=== PATIENT | male | born 1960 | race Caucasian/White ===

== ENCOUNTER 2022-01-28 07:39 | Emergency (ER) | payer BC ==
[~2022-01-28] VITALS: Ht 182.9 cm; Wt 118.0 kg
[2022-01-28 08:15] LABS: HEMATOCRIT 44.8 % (39.0-50.0); HEMOGLOBIN 14.6 g/dl (14.0-18.0); IMMATURE GRANULOCYTES 0.2 % (0.0-5.0); MEAN CELL VOLUME 94.1 fL CALC (80.0-100.0); MEAN CORPUSCULAR HGB 30.7 pG CALC (26.0-32.0); MEAN CORPUSCULAR HGB CONC 32.6 g/dL CAL (32.0-36.0); NEUT# 8.04 thou/uL (1.82-7.42); RED BLOOD COUNT 4.76 mill/uL (4.70-6.10); RED CELL DISTRI WIDTH 12.9 % (11.5-15.5)
[2022-01-28 08:21] LABS: GFR 57 ML/MIN (>=60 (CALC)); GFR FOR AFR.AMER. > 60 ML/MIN (>=60 (CALC))
[2022-01-28 08:30] LABS: ALBUMIN 4.5 g/dL (3.2-5.0); ALKALINE PHOSPHATASE 81 u/l (38-126); ANION GAP 15 (6-22 (CALC)); BILIRUBIN, TOTAL 0.6 mg/dL (0.0-1.4); BUN 21 mg/dL (9-20); BUN/CREATININE RATIO 17 (12-20 (CALC)); CARBON DIOXIDE 27 mmol/l (22-30); CHLORIDE 102 mmol/l (95-108); CREATININE 1.2 mg/dL (0.7-1.3); GFR > 60 ML/MIN (>=60 (CALC)); GFR FOR AFR.AMER. > 60 ML/MIN (>=60 (CALC)); POTASSIUM 4.4 mmol/l (3.5-5.1); SGOT/AST 38 u/l (17-59); SODIUM 139 mmol/l (137-146)
[2022-01-28 13:34] VITALS: BP 153/82
== END 2022-01-28 13:34 | disposition short-term general hospital (02) | DRG 313 ==
LOC: ED 07:39
PROVIDERS: Family Medicine
DX: R07.9 Chest pain, unspecified (principal); E66.9 Obesity, unspecified; F17.200 Nicotine dependence, unspecified, uncomplicated; Z20.822 Contact with and (suspected) exposure to COVID-19
CPT/HCPCS: J1650; Q9967